=== PATIENT | female | born 1975 | race American Indian/Alaskan Native ===

== ENCOUNTER 2016-12-09 14:01 | Emergency (ER) | payer MEDICAID, OTHER ==
[2016-12-09 14:44] LABS: Basophils % (Auto) 0.2 % (0.0-1.8); Eosinophils % (Auto) 5.5 % (0.0-4.3); Hematocrit 40.8 % (30.3-42.9); Hemoglobin 13.4 gm/dl (10.1-14.3); Mean Corpuscular HGB Conc 33 % (30-34); Mean Corpuscular Hemoglobin 31 pg (28-32); Mean Corpuscular Volume 93 fl (79-97); Platelet Count 268 K/mm3 (140-440); Red Blood Count 4.39 M/mm3 (3.65-5.03); Red Cell Distribution Width 14.5 % (13.2-15.2); White Blood Count 9.1 K/mm3 (4.5-11.0)
[2016-12-09 14:55] LABS: Urine Drugs of Abuse Note Disclamer
[2016-12-09 15:08] LABS: BUN/Creatinine Ratio 14.28; Blood Urea Nitrogen 10 mg/dL (7-17); Calcium 9.2 mg/dL (8.4-10.2); Carbon Dioxide 22 mmol/L (22-30); Glucose 88 mg/dL (65-100); Sodium 140 mmol/L (137-145)
[2016-12-09 15:09] LABS: Anion Gap 18 mmol/L; Chloride 104.5 mmol/L (98-107); Potassium 4.2 mmol/L (3.6-5.0)
[2016-12-09 15:23] LABS: Bilirubin,Urine NEG (Negative); Blood,Urine NEG (Negative); Ketones,Urine NEG (Negative); Leukocyte Esterase,Urine NEG (Negative); Mucus,Urine FEW /HPF; Nitrite,Urine NEG (Negative); Protein,Urine <15 mg/dL mg/dL (Negative); Urobilinogen,Urine < 2.0 mg/dL (<2.0); WBC,Urine < 1.0 /HPF (0.0-6.0)
[2016-12-09] MEDS ORDERED: TYLENOL ONE (16:02)
[2016-12-09] MEDS ORDERED: FIORICET PO ONE (17:44)
[2016-12-09] MEDS ORDERED: NORCO 5/325 PO ONE (17:45)
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
[2016-12-09] MEDS ORDERED: HABITROL TD ONE (20:09)
[2016-12-09 22:35] VITALS: BP 158/89
== END 2016-12-09 23:40 | disposition home or self-care (01) ==
LOC: ED 14:01
DX: F43.9 Reaction to severe stress, unspecified (principal); F32.9 Major depressive disorder, single episode, unspecified; F14.10 Cocaine abuse, uncomplicated; F10.10 Alcohol abuse, uncomplicated; K21.9 Gastro-esophageal reflux disease without esophagitis; G43.909 Migraine, unspecified, not intractable, without status migrainosus; F17.200 Nicotine dependence, unspecified, uncomplicated; Z90.49 Acquired absence of other specified parts of digestive tract; Z88.8 Allergy status to other drugs, medicaments and biological substances
CPT/HCPCS: 36415; 80048; 80307; 81001; 85025; 99284; G0480; 80320

== ENCOUNTER 2017-03-01 15:43 | Emergency (ER) | payer MEDICAID, OTHER ==
[2017-03-01 15:50] VITALS: BP 126/66
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
[2017-03-01 16:09] LABS: Urine Drugs of Abuse Note Disclamer
[2017-03-01] MEDS ORDERED: DECADRON IM ONE (16:14)
[2017-03-01] MEDS ORDERED: TORADOL IM ONE (16:15)
[2017-03-01] MEDS ORDERED: ZOFRAN ODT PO ONE (16:15)
[2017-03-01 16:17] LABS: Bilirubin,Urine NEG (Negative); Blood,Urine SM (Negative); Ketones,Urine NEG (Negative); Leukocyte Esterase,Urine NEG (Negative); Mucus,Urine FEW /HPF; Nitrite,Urine NEG (Negative); Protein,Urine <15 mg/dL mg/dL (Negative); Urobilinogen,Urine < 2.0 mg/dL (<2.0)
[2017-03-01] MEDS ORDERED: FLEXERIL PO ONE (16:44)
== END 2017-03-01 17:16 | disposition home or self-care (01) ==
LOC: ED 15:43
DX: G43.909 Migraine, unspecified, not intractable, without status migrainosus (principal); K21.9 Gastro-esophageal reflux disease without esophagitis; F17.200 Nicotine dependence, unspecified, uncomplicated
CPT/HCPCS: 80307; 81001; 96372; 99283; J1100; J1885; Q0162

== ENCOUNTER 2018-09-23 14:11 | Emergency (ER) | payer MEDICAID ==
[2018-09-23 14:17] VITALS: BP 142/80
--- NOTE | 2018-09-23 14:19 | Emergency Department Report ---
Blank Doc - Documentation Documentation: This is a 43-year-old female that presents with URI symptoms. This initial assessment/diagnostic orders/clinical plan/treatment(s) is/are subject to change based on patient's health status, clinical progression and re- assessment by fellow clinical providers in the ED. Further treatment and workup at subsequent clinical providers discretion. Patient/guardians urged not to elope from the ED as their condition may be serious if not clinically assessed and managed. Initial orders include: 1- Patient sent to [facility] for further evaluation and treatment 2- xray
--- NOTE | 2018-09-23 15:35 | XRay Report ---
PA AND LATERAL CXR HISTORY: Cough for 5 days COMPARISON: None FINDINGS: Cardiomediastinal silhouette: Normal cardiac size. Normal mediastinal contours. Lungs: Normal expansion. Normal lung aeration. No pleural effusions. No pneumothorax. Pulmonary vascularity: Normal. Support hardware: None. Additional findings: None. IMPRESSION: No acute cardiopulmonary process. Signer Name: Vahid Gu Jr, MD Signed: 09/23/2018 3:30 PM Workstation Name: [id number]
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
[2018-09-23] MEDS ORDERED: PROVENTIL IH ONE ×2 (15:50)
[2018-09-23] MEDS ORDERED: ATROVENT IH ONE (15:50)
--- NOTE | 2018-09-23 16:53 | Event Note ---
Face to Face: For this encounter I have reviewed the PA/DOCENT COORDINATOR documentation, treatment plan, medical decision making, and I had face to face time with this patient. Patient received a neb treatment here in emergency department and has been on medications for the past 4 days with no relief. The patient is continues to have wheezing and decreased breath sounds. Patient has failed outpatient therapy.
== END 2018-09-23 18:50 | disposition home or self-care (01) ==
LOC: ED 14:11
DX: J40 Bronchitis, not specified as acute or chronic (principal); G43.909 Migraine, unspecified, not intractable, without status migrainosus; K21.9 Gastro-esophageal reflux disease without esophagitis; F17.200 Nicotine dependence, unspecified, uncomplicated; Z90.49 Acquired absence of other specified parts of digestive tract; Z88.8 Allergy status to other drugs, medicaments and biological substances; Z98.51 Tubal ligation status
CPT/HCPCS: 71046; 82803; 94640